=== PATIENT | male | born 1975 | race Caucasian/White ===

== ENCOUNTER 2017-12-25 07:45 | Emergency (ER) | payer BC, OTHER ==
[~2017-12-25] VITALS: Ht 165.1 cm; Wt 74.8 kg
[2017-12-25 10:00] VITALS: BP 127/83
== END 2017-12-25 10:17 | disposition home or self-care (01) ==
LOC: ER 07:50
DX: S83.8X2A Sprain of other specified parts of left knee, initial encounter (principal); F17.210 Nicotine dependence, cigarettes, uncomplicated; X50.9XXA Other and unspecified overexertion or strenuous movements or postures, initial encounter; Y93.89 Activity, other specified; Y99.8 Other external cause status; Y92.89 Other specified places as the place of occurrence of the external cause
CPT/HCPCS: 73562